=== PATIENT | female | born 1950 | race Caucasian/White ===

== ENCOUNTER → 2017-03-08 | Outpatient (CLI) | payer MEDICARE, BC ==
[~2017-03-08] MED LIST: ALPR1TAB6 PO; AMIT50TA PO; DIAZ5TAB PO; HYOS0.1222 PO; LOSA1TAB16 PO; METH750T87 PO; ONDA4TAB7 PO; OXYC20TA2 PO; OXYC40TA27 PO; TRIM100T PO
== END | disposition home or self-care (01) ==
LOC: RAD 14:26
PROVIDERS: ATTEND Neurological Surgery
DX: M41.86 Other forms of scoliosis, lumbar region (principal); M41.84 Other forms of scoliosis, thoracic region
CPT/HCPCS: 72082